=== PATIENT | female | born 1985 | race Caucasian/White ===

== ENCOUNTER 2020-12-30 06:23 | Inpatient (IN) ==
--- NOTE | 2020-12-24 15:21 | Anesthesiology Consultation ---
Date of Service December 24, 2020 Assessment & Plan (1) Encounter for pre-operative examination: Chart Review Chart Review: entry level sales consultant initiated Per nursing assessment December 24, 2020, patient denies any recent travel. No known Covid infection in the past 90 days. No known Covid positive contacts or Covid related symptoms. Preop Covid test 12/24/2020 = results pending. History Surgery Operation Date: 12/30/20 07:30 Proposed Procedures p Section in LD - J. Brayden Peters MD, FACOG Height/Weight Height: 5 ft 5 in Weight: 78.471 kg Allergies Allergy/AdvReac Type Severity Reaction Status Date / Time Penicillins Allergy Mild Unknown Verified 12/24/20 14:49 Medications Home Medications Medication Instructions Recorded Confirmed Last Taken calcium carbonate 1 dose PO QAM 04/13/20 12/24/20 Unknown magnesium carbonate 1 dose PO QAM 04/13/20 12/24/20 Unknown multivitamin 1 dose PO QAM 04/13/20 12/24/20 Unknown hydrocortisone 2.5 % topical cream 1 applic ID DAILY PRN #30 g 11/22/20 12/24/20 Unknown with perineal applicator ascorbic acid (vitamin C) [Vitamin 500 mg PO QAM 12/24/20 12/24/20 Unknown C] omega-3 fatty acids [[place] 3] 1,000 mg PO DAILY 12/24/20 12/24/20 Unknown Past Medical History Medical History History of anal fissures History of postoperative nausea Past Family History Family History Aunt Breast cancer Other No family history of adverse response to anesthesia Denies family history of Ovarian cancer Past Surgical History Surgical History History of colonoscopy History of rectal surgery 2015 for anal abscess, Social History Smoking Status: Never smoker Do You Dip or Chew Tobacco: No Hx Alcohol Use: No Hx Substance Use: No substance use type: does not use
--- NOTE | 2020-12-29 10:42 | History & Physical Report ---
Date of Service December 29, 2020 Assessment & Plan (1) Encounter for pre-operative examination: section. The patient was counseled to the nature of the procedure including alternatives such as labor. Risks were discussed including bleeding infection injury to bowel bladder ureter vessels and even baby. Deep Vein thrombosis, pulmonary embolus discussed. Breakdown of incision reviewed. Deep vein thrombosis pulmonary embolus hernia and failure of the incision to heal were discussed Patient verbalized understanding of this and was given ample time to ask questions We reviewed the option of labor the patient is fairly adamant that she would like to avoid any labor at this stage and she elects for a section we discussed this in detail patient had a mild penicillin rash as a baby I have recommended Anc for her History of Present Illness Primary Care Provider: NO PCP wishes elective c/s, primarily relating to prior anal surgery and wishes to avoid labor Allergies Allergy/AdvReac Type Severity Reaction Status Date / Time Penicillins Allergy Mild Unknown Verified 12/29/20 10:30 Home Medications Medication Instructions Recorded Confirmed Type calcium carbonate 1 dose PO QAM 04/13/20 12/29/20 History magnesium carbonate 1 dose PO QAM 04/13/20 12/29/20 History multivitamin 1 dose PO QAM 04/13/20 12/29/20 History hydrocortisone 2.5 % topical cream 1 applic OR DAILY PRN #30 g 11/22/20 12/29/20 Rx with perineal applicator ascorbic acid (vitamin C) [Vitamin 500 mg PO QAM 12/24/20 12/29/20 History C] omega-3 fatty acids [[place] 3] 1,000 mg PO DAILY 12/24/20 12/29/20 History Patient History Medical History History of anal fissures History of postoperative nausea Surgical History History of colonoscopy History of rectal surgery 2015 for anal abscess, Family History Aunt Breast cancer Other No family history of adverse response to anesthesia Denies family history of Ovarian cancer Social History Smoking Status: Never smoker Second Hand Exposure: No; Hx Alcohol Use: No Hx Substance Use: No Preferred Language: Citizen Of [place] Communication Ability: Effective Estate Attorney Required: No Beliefs That Will Affect Care: None marital status: marital status details: pablito (29) [phone] Current Living Situation: Spouse Current Living Situation Comment: lives with spouse, 1 dog. current occupational status: unemployed Feels Safe at Home: Yes Assistive Devices: None Review of Systems as per Subjective / HPI Physical Exam Constitutional: WD/WN, vitals as above well developed and well nourished Respiratory: normal respiratory effort, lungs clear to auscultation normal respiratory effort Cardiovascular: RRR, no murmur, no edema Gastrointestinal (Abdomen): normal bowel sounds, soft, nontender, no hepatosplenomegaly Coding Level of Care Code None Diagnoses Encounter for pre-operative examination Z01.818
[~2020-12-30 06:23] MED LIST: CITRIC ACID/SODIUM CITRATE 15 ML UDC PO SCH; LACTATED RINGER'S 1,000 ML IV SCH; ceFAZolin 2000MG 2,000 MG/15 ML SYR IV SCH
[2020-12-30 06:58] LABS: Basophils # (auto) 0.02 K/uL (0-0.2); Basophils % (auto) 0.2 %; Eosinophils # (auto) 0.16 K/uL (0-0.5); Eosinophils % (auto) 1.7 %; Hemoglobin 13.1 g/dL (12.0-16.0); Immature Granulocytes # (auto) 0.15 K/uL (0.00-0.02); Immature Granulocytes % (auto) 1.6 %; Lymphocytes # (auto) 1.78 K/uL (1.2-3.4); Lymphocytes % (auto) 18.5 %; Mean Corpuscular Hemoglobin 27.6 pg (25-34); Mean Corpuscular Hgb Conc 32.8 g/dL (32-36); Mean Corpuscular Volume 84.2 fL (80-100); Mean Platelet Volume 9.9 fL (7.4-10.4); Monocytes # (auto) 0.74 K/uL (0.11-0.59); Monocytes % (auto) 7.7 %; Neutrophils # (auto) 6.78 K/uL (1.4-6.5); Neutrophils % (auto) 70.3 %; Platelet Count 272 K/uL (130-400); RDW Coefficient of Variation 15.6 % (11.5-14.5); RDW Standard Deviation 47.6 fL (36.4-46.3); Red Blood Count 4.75 M/uL (4.2-5.4); White Blood Count 9.63 K/uL (4.8-10.8)
--- NOTE | 2020-12-30 07:17 | History & Physical Bridge Note ---
Date of Service December 30, 2020 History & Physical Bridge Note I have examined the patient, reviewed the History & Physical and in the interval since the performance of the History & Physical I have noted the following changes of clinical significance: no changes noted
[2020-12-30] MEDS ORDERED: MoRPHine SULFATE PF 1 MG/ML 10 ML AMP/VIAL ONE (07:33)
[2020-12-30] MEDS ORDERED: PROMETHAZINE HCL 12.5 MG in SODIUM CHLORIDE 0.9% 50 ML IV PRN (08:16)
[2020-12-30] MEDS ORDERED: NALOXONE HCL 1 MG in SODIUM CHLORIDE 0.9% 1000ML 1,000 ML IV PRN (08:16)
[2020-12-30] MEDS ORDERED: ONDANSETRON INJ 2 MG/ML 2 ML VIAL IV PRN (08:16)
[2020-12-30] MEDS ORDERED: ePHEDrine sulfate 50 MG/ML AMP IV PRN (08:16)
[2020-12-30] MEDS ORDERED: NALOXONE HCL 0.08 MG in SYRINGE 1.8 ML IV PRN (08:16)
[2020-12-30] MEDS ORDERED: MEPERIDINE HCL 25 MG/ML CARP/VIAL IV PRN (08:16)
[2020-12-30] MEDS ORDERED: KETOROLAC 30 MG/ML VIAL IV PRN (08:16)
[2020-12-30] MEDS ORDERED: diphenhydrAMINE 50 MG/ML VIAL IV PRN (08:16)
[2020-12-30] MEDS ORDERED: MoRPHine SULFATE PF 1 MG/ML 10 ML AMP/VIAL INT SPINAL ONE (08:16)
[2020-12-30] MEDS ORDERED: NALOXONE HCL 0.4 MG/1 ML VIAL/CARP IV PRN (08:16)
[2020-12-30] MEDS ORDERED: LACTATED RINGER'S 500 ML IV PRN (08:16)
[2020-12-30] MEDS ORDERED: NO NARCOTICS OR SEDATIVES SCH (08:30)
[2020-12-30] MEDS ORDERED: DC INTRASPINAL MORPHINE SCH (08:30)
[2020-12-30] MEDS ORDERED: SODIUM CHLORIDE 0.9% 1000ML 1,000 ML IV SCH (08:30)
[2020-12-30] MEDS ORDERED: PROPOFOL IV EMULSION 10 MG/ML 20 ML VIAL IV ONE (09:03)
[2020-12-30] MEDS ORDERED: MIDAZOLAM HCL 1 MG/ML 2ML VIAL ONE ×2 (09:04→09:07)
[2020-12-30] MEDS ORDERED: METOCLOPRAMIDE HCL INJ 5 MG/ML 2 ML VIAL ONE (09:26)
[2020-12-30] MEDS ORDERED: PHENYLEPHRINE 100MCG/ML 5ML SYR ONE (09:26)
[2020-12-30] MEDS ORDERED: ONDANSETRON INJ 2 MG/ML 2 ML VIAL ONE (09:26)
[2020-12-30] MEDS ORDERED: OXYTOCIN 10 UNITS/ML VIAL ONE (09:26)
--- NOTE | 2020-12-30 09:29 | Operative Report ---
PG Post Operative Report Pre & Post Diagnosis Operation Date: 12/30/20 08:15 Pre-Op Diagnosis: Prior anal surgery. Request for primary section. 39 complete weeks . Post-Op Diagnosis: Same as above I identified the patient and participated in the time-out.: Yes Procedure Operation Date: 12/30/20 08:15 Actual Procedures p Section in LD delivery of live female child at 0854 - Chucho Peters MD, FACOG Surgeon Chucho Peters MD, FACOG Tow Bar Driver Dr. Gomez Estimated Blood Loss 700 Findings Consistent with Post-Op Diagnosis Specimens Cord gases Description of Procedure Regional anesthetic was given by anesthesia patient had a Preciado catheter inserted by nursing patient was prepped and draped in supine position with a leftward tilt preoperative antibiotics were given timeout performed Pickups with teeth were used to test the skin site and it was found adequate for incision scalpel used to make a Pfannenstiel incision cutting down through subcutaneous fat through the fascia fascia was then dissected laterally with the curved Murray's fascia was released superiorly and inferiorly from the rectus muscles with the curved Murray scissors, rectus muscle split peritoneal cavity entered in a superior location. Opening enlarged to allow exposure bladder retractor placed Metzenbaums used to dissect away the bladder flap low segment transverse incision made on the uterus with scalpel entry was done bluntly with the derrick boat operator's finger hysterotomy incision extended with the derrick boat operator's finger in the usual fashion initially tried to flex the head and deliver however I could not get delivery of the head easily so vacuum was applied and then pulled on it was able to deliver the head, rest of the baby was delivered fully without difficulty without excessive force live vigorous cord clamped and cut cord gases obtained cord blood obtained placenta removed manually within ensured all placenta removed with a moist lap sponge uterus exteriorized IV Pitocin had been started by anesthesia and uterine tone improved. The uterus was closed in 2 layers first layer and 0 Monocryl running locked second layer 0 Monocryl nonlocked after generous irrigation and suction of the cul-de-sac and bladder flap regions hemostasis was excellent uterus was placed back in the peritoneal cavity and hemostasis was excellent rectus muscles were inspected and found to be dry fascia closed with 0 Vicryl subcutaneous fat closed with 3-0 Vicryl prior to this subcutaneous fat was irrigated skin closed with 4-0 subcuticular Monocryl incision Steri-Stripped urine was clear at the end of the procedure Uterine cavity and bilateral adnexa were normal I attest to the content of the Intraoperative Record and any orders documented therein. Any exceptions are noted below. Procedure Pre-op/Post-op diagnoses: Pre-Op/Post-Op Diagnoses Operation Date: 12/30/20 08:15 Pre-Op Diagnosis: Prior anal surgery. Request for primary section. 39 complete weeks . Post-Op Diagnosis: Same as above Procedure: Procedures Operation Date: 12/30/20 08:15 Actual Procedures Side Surgeon p Section in LD delivery of live female child at 0854 Chucho Peters MD, FACOG
[2020-12-30] MEDS ORDERED: HYDROCORTISONE ACETATE 25 MG SUPP PR PRN (09:40)
[2020-12-30] MEDS ORDERED: SUPERCREAM 0.870% 15 GM JAR EXT PRN (09:40)
[2020-12-30] MEDS ORDERED: SENNA 8.6 MG TAB PO PRN (09:40)
[2020-12-30] MEDS ORDERED: BENZOCAINE 20% AER SPR 82.5 GM CAN EXT PRN (09:40)
[2020-12-30] MEDS ORDERED: MAGNESIUM HYDROXIDE SUSP 30 ML UDC PO PRN (09:40)
[2020-12-30] MEDS ORDERED: DIPHTHERIA/TETANUS/PERTUSSIS 0.5 ML SYR/VIAL IM ONE (09:40)
[2020-12-30] MEDS ORDERED: LACTATED RINGER'S 1,000 ML IV SCH (09:45)
[2020-12-30] MEDS ORDERED: MEPERIDINE HCL 25 MG/ML CARP/VIAL ONE (09:46)
[2020-12-30] MEDS ORDERED: KETOROLAC 30 MG/ML VIAL ONE (09:47)
[2020-12-30 10:27] LABS: Base Excess Cord Arterial Bld -2.1 mEq/L (-9-1.8); CO2 Cord Arterial Blood 38 mmHg (39.1-73.5); HCO3 Cord Arterial Blood 22 mmol/L (19.7-28.5); Oxygen Sat Cord Arterial Blood 77.9 % (<60); PO2 Cord Arterial Blood 36 mmHg (4.1-31.7)
[2020-12-30 10:29] LABS: pH Cord Arterial Blood 7.39 (7.1-7.38)
[2020-12-30] MEDS: OXYTOCIN 20 UNITS in LACTATED RINGER'S 1,000 ML IV SCH ×2 (11:17→19:06)
[2020-12-30] MEDS: SIMETHICONE 80 MG CHEW PO SCH ×3 (13:50→21:03)
--- NOTE | 2020-12-30 20:50 | Anesthesiology Progress Note ---
Date of Service December 30, 2020 Anesthesia Post Procedure Vital Signs Vital Signs: Temp Pulse Pulse Resp BP BP Pulse Ox 12/30/20 20:00 18 96 12/30/20 19:30 36.5 C 85 18 114/73 95 12/30/20 18:27 18 97 12/30/20 17:40 18 96 12/30/20 16:05 18 97 12/30/20 15:45 18 99 12/30/20 14:30 18 97 12/30/20 13:30 36.6 C 94 H 16 118/73 97 12/30/20 12:50 90 99 12/30/20 12:48 90 117/62 12/30/20 12:45 85 99 12/30/20 12:40 91 H 100 12/30/20 12:35 75 100 12/30/20 12:30 97 H 99 12/30/20 12:25 89 100 12/30/20 12:20 86 99 12/30/20 12:18 90 117/62 12/30/20 12:15 86 100 12/30/20 12:10 83 100 12/30/20 12:05 76 100 12/30/20 12:00 82 100 12/30/20 11:57 36.8 C 18 12/30/20 11:55 84 100 12/30/20 11:50 82 100 12/30/20 11:47 73 116/63 12/30/20 11:45 84 100 12/30/20 11:40 108 H 98 12/30/20 11:38 73 115/62 12/30/20 11:35 84 99 12/30/20 11:30 91 H 99 12/30/20 11:28 93 H 121/67 12/30/20 11:25 97 H 99 12/30/20 11:20 99 H 99 12/30/20 11:17 89 118/68 12/30/20 11:15 86 98 12/30/20 11:10 87 98 12/30/20 11:07 86 18 118/61 12/30/20 11:05 79 97 12/30/20 11:00 92 H 99 12/30/20 10:58 81 123/60 12/30/20 10:55 98 H 98 12/30/20 10:50 73 97 12/30/20 10:48 89 125/65 12/30/20 10:47 18 12/30/20 10:45 96 H 98 12/30/20 10:40 96 H 98 12/30/20 10:38 99 H 126/68 12/30/20 10:37 36.8 C 18 12/30/20 10:35 95 H 98 12/30/20 10:30 98 H 98 12/30/20 10:28 96 H 123/61 12/30/20 10:27 18 12/30/20 10:25 99 H 97 12/30/20 10:20 93 H 97 12/30/20 10:18 92 H 128/65 12/30/20 10:17 18 12/30/20 10:15 89 97 12/30/20 10:14 92 H 94 12/30/20 10:10 79 97 12/30/20 10:09 83 91 12/30/20 10:08 91 H 128/63 12/30/20 10:07 18 12/30/20 10:05 84 99 12/30/20 10:00 89 99 12/30/20 09:58 70 130/64 12/30/20 09:55 95 H 100 12/30/20 09:50 102 H 100 12/30/20 09:48 106 H 127/82 12/30/20 09:45 97 H 100 12/30/20 09:40 110 H 99 12/30/20 09:37 36.6 C 111 H 18 142/74 H 12/30/20 09:35 111 H 97 12/30/20 07:15 36.8 C 18 12/30/20 06:44 75 129/79 Pain Intensity Anterior: Pain Intensity: 2 Transfer of Care Handoff Completed per policy Notes Mental Status: alert / awake / arousable Patient Amnestic to Procedure: Yes Nausea / Vomiting: adequately controlled Pain: adequately controlled Airway Patency, RR, SpO2: stable & adequate BP & HR: stable & adequate Hydration State: stable & adequate Neuraxial Anesthesia: was administered and sensory block is resolving Anesthetic Complications: no major complications apparent
[2020-12-30] MEDS: DOCUSATE SODIUM 100 MG CAP PO SCH (21:03)
[2020-12-31] MEDS ORDERED: diphenhydrAMINE Capsule 25 MG CAP PO PRN (02:16)
[2020-12-31] MEDS ORDERED: ePHEDrine sulfate 50 MG/ML AMP IV PRN (02:16)
[2020-12-31] MEDS ORDERED: diphenhydrAMINE 50 MG/ML VIAL IV PRN (02:16)
[2020-12-31] MEDS ORDERED: PROMETHAZINE HCL 25 MG in SODIUM CHLORIDE 0.9% 50 ML IV PRN (02:16)
[2020-12-31] MEDS ORDERED: ONDANSETRON INJ 2 MG/ML 2 ML VIAL IV PRN (02:16)
[2020-12-31] MEDS: IBUPROFEN 600 MG TAB PO PRN ×2 (02:23→14:20)
[2020-12-31 06:43] LABS: Basophils # (auto) 0.02 K/uL (0-0.2); Basophils % (auto) 0.1 %; Eosinophils # (auto) 0.09 K/uL (0-0.5); Eosinophils % (auto) 0.6 %; Hematocrit (blood only) 31.4 % (37-47); Hemoglobin 10.4 g/dL (12.0-16.0); Immature Granulocytes # (auto) 0.07 K/uL (0.00-0.02); Immature Granulocytes % (auto) 0.5 %; Lymphocytes # (auto) 1.32 K/uL (1.2-3.4); Lymphocytes % (auto) 9.3 %; Mean Corpuscular Hemoglobin 27.7 pg (25-34); Mean Corpuscular Hgb Conc 33.1 g/dL (32-36); Mean Corpuscular Volume 83.7 fL (80-100); Mean Platelet Volume 9.6 fL (7.4-10.4); Monocytes # (auto) 0.75 K/uL (0.11-0.59); Monocytes % (auto) 5.3 %; Neutrophils # (auto) 11.87 K/uL (1.4-6.5); Neutrophils % (auto) 84.2 %; Platelet Count 227 K/uL (130-400); RDW Coefficient of Variation 15.4 % (11.5-14.5); RDW Standard Deviation 46.7 fL (36.4-46.3); Red Blood Count 3.75 M/uL (4.2-5.4); White Blood Count 14.12 K/uL (4.8-10.8)
--- NOTE | 2020-12-31 07:14 | Obstetrical Progress Note ---
Date of Service <Wilian Suarez MD - Last Filed: 12/31/20 07:14> December 31, 2020 Assessment & Plan <Wilian Suarez MD - Last Filed: 12/31/20 07:14> (1) Supervision of elderly primigravida: A/P: Patient is a 35yo female on POD#1 s/p delivery at 39+3wga. * VSS * Doing well today overall; eating well, voiding well, ambulating well * Pain well-controlled with ibuprofen 600mg q4h * PNL: Rh pos, RI, GBS neg, COVID neg * Routine post- care: OOB, ambulation, diet progression as tolerated * After discharge, will have six-week follow-up with Dr. Peters Subjective <Wilian Suarez MD - Last Filed: 12/31/20 07:14> Patient is a 35yo female on POD#1 s/p delivery at 39+3wga. This morning, patient feels well overall. Reports mild, crampy abdominal pain well- managed on analgesics. Tolerating PO intake without nausea or vomiting. Patient has been able to ambulate without lightheadedness or dizziness. Lochia is gradually improving over time. Preciado catheter has been removed, and patient is voiding without difficulty.Patient is passing flatus; no BM since surgery. Patient is . Review of Systems Denies fever, chills, CP, SOB, cough, breast pain, dysuria, leg pain, leg swelling, headache, and changes in vision. Physical Exam <Wilian Suarez MD - Last Filed: 12/31/20 07:14> Gen: awake, alert, oriented, laying in bed Cardiac: regular rhythm, no murmur appreciated Resp: lungs CTABL, good respiratory effort, no increased WOB, no wheezes/rales/rhonchi Abd: normal gravid abdomen, soft, mildly tender, BS present, surgical incision clean, dry, and intact with steri-strips in place : uterine fundus firm, palpable 2-3 cm below umbilicus LE: no lower extremity edema bilaterally; no deep calf pain, Brandon's negative bilaterally Results & Data ([facility]) <Wilian Suarez MD - Last Filed: 12/31/20 07:14> Vital Signs (Past 12 Hours) Vital Signs Temp Pulse Resp BP Pulse Ox 12/31/20 03:15 37.0 C 69 18 98/61 L 97 12/31/20 02:00 18 94 12/31/20 01:00 16 95 12/31/20 00:00 18 94 12/30/20 23:15 37.0 C 88 18 111/71 97 12/30/20 22:00 18 95 12/30/20 21:05 18 96 12/30/20 20:00 18 96 12/30/20 19:30 36.5 C 85 18 114/73 95 <Chucho Peters MD, FACOG - Last Filed: 12/31/20 07:49> Co-Signing Physician Notes Resident Physician Supervision Note: I interviewed and examined the patient. Discussed with Dr. Gomez and agree with findings and plan as documented in the note. Any exceptions or clarifications are listed here: [None] Documented By: Chucho Peters MD, FACOG Resident Activity Tracking <Wilian Suarez MD - Last Filed: 12/31/20 07:14> Resident Involvement: Resident Care Provided Care Provided: OB Delivery
[2020-12-31] MEDS: PRENATAL VITAMIN 1 TAB PO SCH (07:57)
[2020-12-31] MEDS: SIMETHICONE 80 MG CHEW PO SCH ×4 (07:57→21:23)
[2020-12-31] MEDS: FERROUS SULFATE 325 MG TAB PO SCH (07:57)
[2020-12-31] MEDS: DOCUSATE SODIUM 100 MG CAP PO SCH ×2 (07:58→21:22)
[2020-12-31] MEDS: oxyCODONE/ACETAMINOPHEN 5mg/325mg TAB PO PRN ×2 (07:58→14:22)
[2021-01-01] MEDS: IBUPROFEN 600 MG TAB PO PRN ×4 (02:02→22:53)
--- NOTE | 2021-01-01 06:35 | Obstetrical Progress Note ---
Date of Service <Wilian Suarez MD - Last Filed: 01/01/21 06:35> January 01, 2021 Assessment & Plan <Wilian Suarez MD - Last Filed: 01/01/21 06:35> (1) Supervision of elderly primigravida: A/P: Margaux Guzman 35yo female on POD#2 s/p delivery at 39+3wga. * VSS * Doing well today overall; eating well, voiding well, ambulating well * Pain well-controlled with ibuprofen 600mg q4h * PNL: Rh pos, RI, GBS neg, COVID neg * Routine post- care: OOB, ambulation, diet progression as tolerated * After discharge, will have six-week follow-up with Dr. Peters Subjective <Wilian Suarez MD - Last Filed: 01/01/21 06:35> Margaux Guzman 35yo female on POD#2 s/p delivery at 39+3wga. Patient reports feeling "exhausted" but says she's doing well overall this morning. Reports mild, crampy abdominal pain well-managed on analgesics. Also endorses intermittent mild "gas pain". Tolerating PO intake without nausea or vomiting. Patient has been able to ambulate without lightheadedness or dizziness. Lochia is gradually improving over time. Preciado catheter has been removed, and patient is voiding without difficulty.Patient is passing flatus; no BM since surgery. is going well. Denies fever, chills, CP, SOB, cough, breast pain, dysuria, leg pain, headache, and changes in vision. Physical Exam <Wilian Suarez MD - Last Filed: 01/01/21 06:35> Gen: awake, alert, oriented, laying in bed Cardiac: regular rhythm, no murmur appreciated Resp: lungs CTABL, good respiratory effort, no increased WOB, no wheezes/rales/rhonchi Abd: normal gravid abdomen, soft, mildly tender, BS present, surgical incision clean, dry, and intact with steri-strips in place : uterine fundus firm, palpable 2-3 cm below umbilicus LE: minimal lower extremity edema bilaterally; no deep calf pain, Brandon's negative bilaterally Results & Data ([facility]) <Wilian Suarez MD - Last Filed: 01/01/21 06:35> Vital Signs (Past 12 Hours) Vital Signs Temp Pulse Resp BP Pulse Ox 12/31/20 23:30 36.8 C 95 H 17 126/80 98 <Susana Thorpe MD - Last Filed: 01/01/21 08:14> Co-Signing Physician Notes Resident Physician Supervision Note: I interviewed and examined the patient. Discussed with Dr. Suarez and agree with findings and plan as documented in the note. Any exceptions or clarifications are listed here: POD2 s/p elective pCS. Doing well, meeting pp milestones. VSS, exam benign and wnl. Plan d/c tomorrow Documented By: Susana Thorpe MD Resident Activity Tracking <Wilian Suarez MD - Last Filed: 01/01/21 06:35> Resident Involvement: Resident Care Provided Care Provided: OB Delivery
[2021-01-01] MEDS: SIMETHICONE 80 MG CHEW PO SCH ×4 (08:35→20:01)
[2021-01-01] MEDS: PRENATAL VITAMIN 1 TAB PO SCH (08:35)
[2021-01-01] MEDS: FERROUS SULFATE 325 MG TAB PO SCH (08:35)
[2021-01-01] MEDS: DOCUSATE SODIUM 100 MG CAP PO SCH ×2 (08:35→20:01)
[2021-01-01] MEDS ORDERED: bisacodyL 10 MG SUPP PR PRN (09:29)
[2021-01-01] MEDS ORDERED: Nursing to Pharmacy Communication SCH (15:15)
--- NOTE | 2021-01-02 07:49 | Obstetrical Progress Note ---
Date of Service January 02, 2021 Assessment & Plan (1) S/P section: Doing well. Plan d/c home later today. Instructions given. f/u in office in 6 weeks. Day #:: 3 Subjective Ambulation: ambulating normally Voiding: no voiding problems Passing Gas:: Yes Diet Tolerance:: regular diet Lochia:: Small Feeding Type:: breast feeding Pain controlled with oral pain meds. Physical Exam Constitutional WD/WN, vitals as above Respiratory normal respiratory effort, lungs clear to auscultation Cardiovascular RRR, no murmur, no edema Extremities: no calf tenderness and no edema Gastrointestinal (Abdomen) soft, nt, nd, ff/nt at u Results & Data ([facility]) Vital Signs (Past 12 Hours) Vital Signs Temp Pulse Resp BP Pulse Ox 01/01/21 22:50 36.8 C 91 H 16 119/74 98 01/01/21 20:00 36.8 C 89 16 118/75 96
[2021-01-02] MEDS: PRENATAL VITAMIN 1 TAB PO SCH (08:33)
[2021-01-02] MEDS: DOCUSATE SODIUM 100 MG CAP PO SCH (08:33)
[2021-01-02] MEDS: IBUPROFEN 600 MG TAB PO PRN ×2 (08:33→13:46)
[2021-01-02] MEDS: FERROUS SULFATE 325 MG TAB PO SCH (08:33)
[2021-01-02] MEDS: SIMETHICONE 80 MG CHEW PO SCH ×2 (08:33→13:46)
--- NOTE | 2021-01-04 09:46 | Discharge Summary ---
Date of Service January 04, 2021 Admission Exam (Per Admitting) Constitutional WD/WN, vitals as above well developed and well nourished Respiratory normal respiratory effort, lungs clear to auscultation normal respiratory effort Cardiovascular RRR, no murmur, no edema Gastrointestinal (Abdomen) normal bowel sounds, soft, nontender, no hepatosplenomegaly Discharge Data Procedures Performed Operation Date: 12/30/20 08:15 Actual Procedures p Section in delivery of live female child at [address] [place] [address] Brayden Peters MD, [facility] Course (1) S/P section: Doing well. Plan d/c home later today. Instructions given. f/u in of fice in 6 weeks. Coding Level of Care Code None Diagnoses S/P section Z98.891
== END 2021-01-02 15:33 | disposition home or self-care (01) | DRG 788 ==
LOC: 4S1 06:23 → EDSTATUS 07:30 → 4S2 13:53

== ENCOUNTER 2024-02-13 02:57 | Inpatient (IN) ==
[2024-02-13] MEDS ORDERED: MoRPHine SULFATE PF 1 MG/ML 10 ML AMP/VIAL ONE (04:22)
--- NOTE | 2024-02-13 04:22 | History & Physical Report ---
Date of Service February 13, 2024 Assessment & Plan (1) Gestational diabetes: (2) SROM (spontaneous rupture of membranes): (3) Polyhydramnios: Plan 38 yo at 38 3/7 wga presents w/ srom/labor, hx CS plans repeat VSS Fetus cat 1 CS - Discussed indications, risks, benefits, alternatives with risks including infection, bleeding, injury to adjacent structures (bowel, bladder, ureters, blood vessels, nerves, baby), possible need for blood transfusion and/or life saving hysterectomy, VTE. Consent reviewed in detail w/ pt and signed after all questions answered to her satisfaction. Plan for ancef and azithro, tolerated ancef last CS Admission and Anticipated Discharge Date Admission Date: February 13, 2024 History of Present Illness Chief Complaint: ROM, labor Primary Care Provider: NO PCP 38 yo at 38 3/7 wga presents w/ LOF. Had been ctx intermittently throughout the day but worsened overnight. Had started timing them and shortly after had srom at 2am PNI: CSx1, desires repeat A1GDM Polyhydramnios Past health and wellness advisor hx: G1 2020 pCS G2 2022 sab G3 current denies hx stis Allergies Allergy/AdvReac Type Severity Reaction Status Date / Time Penicillins Allergy Mild Rash Verified 02/11/24 15:01 Home Medications Medication Instructions Recorded Confirmed Type PNV no.[id number] 1 tab PO QAM 08/03/23 02/13/24 History [ Gummies(zinc chelate)] calcium 100 mg capsule 100 mg PO QAM 02/11/24 02/13/24 History cholecalciferol (vitamin D3) 100 1,000 unit PO DAILY 02/11/24 02/13/24 History mcg (4,000 unit) capsule coenzyme Q10 100 mg capsule 100 mg PO QAM 02/11/24 02/13/24 History (CoQ-10) docusate sodium 100 mg tablet 100 mg PO DAILY 02/11/24 02/13/24 History (Stool Softener) magnesium 250 mg tablet 250 mg PO QAM 02/11/24 02/13/24 History selenium 25 mcg tablet 25 mcg PO DAILY 02/11/24 02/13/24 History vitamin B complex 1 cap PO DAILY 02/11/24 02/13/24 History zinc 50 mg tablet 50 mg PO DAILY 02/11/24 02/11/24 History Patient History Medical History Hx of migraines Polyhydramnios Gestational diabetes checking glucose at home, average 80's when fasting, 90-100's with food Elderly multigravida History of anal fissures Surgical History History of postoperative nausea S/P section (12/2020) History of colonoscopy (2015) History of rectal surgery (2015) r/t anal abscess Family History Aunt Breast cancer Other No family history of adverse response to anesthesia Denies family history of Ovarian cancer Colorectal cancer Social History Smoking Status: Never smoker Second Hand Exposure: No; Do You Dip or Chew Tobacco: No; Hx Alcohol Use: No Hx Substance Use: No Preferred Language: [place]ian Communication Ability: Effective Computer Applications Developer Required: No Beliefs That Will Affect Care: None marital status: marital status details: Jignesh Guzman (31) [phone] Current Living Situation: Spouse and Family Current Living Situation Comment: lives at home with and 3 yr old daughter current occupational status: unemployed current occupation: homemaker Other Information That Helps Us Care for You: No Feels Safe at Home: Yes Safety Concerns: Feels Safe At This Time Assistive Devices: None Physical Exam Genitourinary: Manual OB Exam: + cervical dilation fingertip, + cervical effacement and + amniotic fluid (+nitrazine, pooling, ferning) OB Exam Monitor Tracing: + external FHT monitor used, + external uterine monitor used (q4-6) and + category I Results & Data Vital Signs (Past 12 Hours) Vital Signs Temp Pulse Resp BP 02/13/24 03:22 98.1 F 02/13/24 03:18 98.1 F 18 02/13/24 03:15 91 H 142/82 H Laboratory Results OB Labs: Blood Type O Positive 08/08/23 Antibody Screen NEGATIVE 08/08/23 Hemoglobin 10.8 g/dl (12.0-16.0) L 12/06/23 Hematocrit 32.1 % (37.0-47.0) L 12/06/23 Mean Corpuscular Volume 82.8 fL (80.0-100.0) 08/08/23 Platelet Count 367 K/uL (130-400) 08/08/23 Rubella IgG Antibody Immune (Immune) 08/08/23 Rapid Plasma Reagin Nonreactive (Nonreactive) 08/08/23 Hepatitis B Surface Antigen Neg (Neg) 06/04/20 Hepatitis B Surface Antigen. NON-REACTIVE (NON-REACTIVE) 08/08/23 Hepatitis C Antibody (EIA) NON-REACTIVE (NON-REACTIVE) 08/08/23 HIV (1&2) Ab and P24 Ag, 4th Gener Neg (Neg) 06/04/20 HIV (1&2) Ag and Ab Confirmation NON-REACTIVE (NON-REACTIVE) 08/08/23 Glucose 1 Hour 50 gm Load 160 mg/dl (70-130) H 12/06/23 OB Optional Labs: Chlamydia trachomatis RNA Not Detected (NotDetected) 08/08/23 Neisseria gonorrhoeae RNA Not Detected (NotDetected) 08/08/23 Labs Reviewed: cf/sma negative prior --mln Declines genetics--mln GBS neg Diagnostic Findings 02/06 EFW 45%, DVP 8, ant plac Coding Level of Care Code None Diagnoses Gestational diabetes O24.419 SROM (spontaneous rupture of membranes) Polyhydramnios O40.9XX0
[2024-02-13 04:26] LABS: Basophils # (auto) 0.04 K/uL (0.00-0.20); Basophils % (auto) 0.4 %; Eosinophils # (auto) 0.02 K/uL (0.00-0.50); Eosinophils % (auto) 0.2 %; Hematocrit (blood only) 37.6 % (37.0-47.0); Hemoglobin 12.8 g/dl (12.0-16.0); Immature Granulocytes # (auto) 0.08 K/uL (0.01-0.20); Immature Granulocytes % (auto) 0.7 %; Lymphocytes # (auto) 1.21 K/uL (1.20-3.40); Lymphocytes % (auto) 11.2 %; Mean Corpuscular Hemoglobin 28.3 pg (25.0-34.0); Mean Platelet Volume 10.5 fL (9.4-12.4); Monocytes # (auto) 0.54 K/uL (0.11-0.59); Neutrophils # (auto) 8.91 K/uL (1.40-6.50); Neutrophils % (auto) 82.5 %; Platelet Count 242 K/uL (130-400); RDW Coefficient of Variation 15.1 % (11.5-14.5); RDW Standard Deviation 45.8 fL (36.4-46.3); Red Blood Count 4.53 M/uL (4.20-5.40)
[2024-02-13] MEDS ORDERED: fentaNYL citrate PF 100 MCG/2 ML VIAL ONE (04:27)
--- NOTE | 2024-02-13 04:32 | Anesthesiology Consultation ---
Date of Service February 13, 2024 Assessment & Plan (1) Encounter for pre-operative examination: Chart Review Chart Review: Acceptable Risk for Surgery History Surgery Operation Date: 02/13/24 03:50 Proposed Procedures p Section in LD - Susana Thorpe MD Height/Weight Height: 5 ft 4 in Weight: 81.647 kg Allergies Allergy/AdvReac Type Severity Reaction Status Date / Time Penicillins Allergy Mild Rash Verified 02/11/24 15:01 Medications Home Medications Medication Instructions Recorded Confirmed Last Taken PNV [id number] 1 tab PO QAM 08/03/23 02/13/24 02/12/24 [ Gummies(zinc chelate)] calcium 100 mg capsule 100 mg PO QAM 02/11/24 02/13/24 02/12/24 cholecalciferol (vitamin D3) 100 1,000 unit PO DAILY 02/11/24 02/13/24 02/12/24 mcg (4,000 unit) capsule coenzyme Q10 100 mg capsule 100 mg PO QAM 02/11/24 02/13/24 02/11/24 (CoQ-10) docusate sodium 100 mg tablet 100 mg PO DAILY 02/11/24 02/13/24 02/12/24 (Stool Softener) magnesium 250 mg tablet 250 mg PO QAM 02/11/24 02/13/24 02/12/24 selenium 25 mcg tablet 25 mcg PO DAILY 02/11/24 02/13/24 02/11/24 vitamin B complex 1 cap PO DAILY 02/11/24 02/13/24 02/12/24 zinc 50 mg tablet 50 mg PO DAILY 02/11/24 02/11/24 Unknown Past Medical History Medical History Hx of migraines Polyhydramnios Gestational diabetes checking glucose at home, average 80's when fasting, 90-100's with food Elderly multigravida History of anal fissures Past Family History Family History Aunt Breast cancer Other No family history of adverse response to anesthesia Denies family history of Ovarian cancer Colorectal cancer Past Surgical History Surgical History History of postoperative nausea S/P section (12/2020) History of colonoscopy (2015) History of rectal surgery (2015) r/t anal abscess Social History Smoking Status: Never smoker Do You Dip or Chew Tobacco: No Hx Alcohol Use: No Hx Substance Use: No substance use type: does not use Physical Exam Vital Signs Last Vital Signs Temp 36.7 C 02/13/24 03:22 Pulse 91 H 02/13/24 03:15 Resp 18 02/13/24 03:18 BP 142/82 H 02/13/24 03:15 Testing Laboratory Results Laboratory Tests 02/13/24 04:16 Hgb 12.8 Plt Count 242
[2024-02-13] MEDS: ceFAZolin 2000MG 2,000 MG/15 ML SYR IV SCH (04:38)
[2024-02-13] MEDS: CITRIC ACID/SODIUM CITRATE 15 ML UDC PO SCH (04:38)
[2024-02-13] MEDS ORDERED: ONDANSETRON INJ 2 MG/ML 2 ML VIAL IV PRN ×2 (04:40→23:35)
[2024-02-13] MEDS ORDERED: PROMETHAZINE HCL 6.25 MG in SODIUM CHLORIDE 0.9% 50 ML IV PRN (04:40)
[2024-02-13] MEDS ORDERED: ePHEDrine sulfate 50 MG/ML AMP IV PRN (04:40)
[2024-02-13] MEDS ORDERED: LACTATED RINGER'S 500 ML IV PRN (04:40)
[2024-02-13] MEDS ORDERED: NALBUPHINE HCL 5 MG in SYRINGE 0 ML IV PRN (04:40)
[2024-02-13] MEDS ORDERED: diphenhydrAMINE 50 MG/ML VIAL IV PRN ×2 (04:40→23:35)
[2024-02-13] MEDS ORDERED: NALOXONE HCL 1 MG in SODIUM CHLORIDE 0.9% 1,000 ML IV PRN (04:40)
[2024-02-13] MEDS ORDERED: MoRPHine SULFATE 2 MG/ML CARP IV PRN (04:40)
[2024-02-13] MEDS ORDERED: NALOXONE HCL 0.4 MG/1 ML VIAL/CARP IV PRN (04:40)
[2024-02-13] MEDS ORDERED: NALOXONE HCL 0.08 MG in SYRINGE 1.8 ML IV PRN (04:40)
[2024-02-13 04:41] LABS: Albumin Globulin Ratio 1.1 (0.9-2); Albumin Level 3.5 gm/dl (3.4-5.0); BUN Creatinine Ratio 19.7 (10-20); Bilirubin,Total 0.2 mg/dl (0.2-1.0); Calcium 9.4 mg/dl (8.6-10.3); Creatinine Clr Calc Pharmacy 129.3 ml/min; Est GFR (African American) 133.3 ml/min; Globulin 3.2 gm/dl (2.5-4.0); Potassium 3.8 mmol/L (3.5-5.1); Total Protein 6.7 gm/dl (6.0-8.3)
[2024-02-13] MEDS: AZITHROMYCIN 500 MG in DEXTROSE 5% 250 ML IV SCH (04:41)
[2024-02-13] MEDS: LACTATED RINGER'S 1,000 ML IV SCH ×2 (04:41→17:34)
[2024-02-13] MEDS ORDERED: NO NARCOTICS OR SEDATIVES SCH (04:45)
[2024-02-13] MEDS ORDERED: DC INTRASPINAL MORPHINE SCH (04:45)
[2024-02-13] MEDS ORDERED: OXYTOCIN 10 UNITS/ML VIAL ONE ×3 (04:48→05:58)
[2024-02-13] MEDS ORDERED: METOCLOPRAMIDE HCL INJ 5 MG/ML 2 ML VIAL ONE (04:48)
[2024-02-13] MEDS ORDERED: ONDANSETRON INJ 2 MG/ML 2 ML VIAL ONE (04:48)
[2024-02-13] MEDS ORDERED: PHENYLEPHRINE 100MCG/ML 10ML SYR IV ONE (05:11)
[2024-02-13] MEDS ORDERED: MEPERIDINE HCL 25 MG/ML CARP/VIAL ONE (05:40)
--- NOTE | 2024-02-13 06:22 | Operative Report ---
Post Operative Report Pre & Post Diagnosis Operation Date: 02/13/24 03:50 Pre-Op Diagnosis: Repeat Section SROM GDM Polyhydramnios Post-Op Diagnosis: Same I identified the patient and participated in the time-out.: Yes Procedure Operation Date: 02/13/24 03:50 Actual Procedures p Repeat Low Transverse Section in for [facility] at 0525(Bilateral) - Susana Thorpe MD Surgeon Susana Thorpe MD Canceling And Cutting Control Clerk REY Ramachandran Quantitative Blood Loss (QBL) 719 Findings Consistent with Post-Op Diagnosis Viable female with APGARs 8 and 9. Moderate rectus adhesions. Unable to exteriorize uterus due to enlarged size despite adequate incision. so unable to visualize tubes and ovaries Fluids 3L crystalloid, UOP 350cc clear urine by layton catheter Specimens Cord blood, placenta Drains Layton draining clear urine Anesthesia Type Spinal Complications none Disposition Accompanied Patient To Recovery: Yes Disposition: L&D Indications 38 yo at 38 3/7 wga presented with srom and in labor. She desires repeat CS Description of Procedure The patient was taken to the operating room after consents were ensured. The patient was properly identified. Spinal anesthesia was obtained without difficulty. The patient was placed in a dorsal supine position with left lateral tilt, then prepped and draped in normal sterile fashion. Surgical time out was performed. Antibiotics were given for prophylaxis. Anesthesia was tested to ensure adequate surgical levels. Pfannenstiel skin incision was performed and carried down to the underlying fascia with a knife. The fascia was then nicked in the midline and extended laterally with pickups and Murray scissors. Superior portion of the fascia was grasped with Kochers x2 and elevated off the underlying rectus muscles using blunt dissection. Inferior portion of the fascia was then grasped with Dougie clamps x2 and also elevated off the underlying muscles with blunt dissection. Midline was identified. The peritoneum was then entered and extended to provide adequate room for delivery of baby. A hand was inserted into the abdomen, uterus was noted to be clear of adhesions. Bladder blade was inserted, bladder flap was created in the usual fashion. A low transverse uterine incision was made in the uterus and extended bluntly in a superior to inferior fashion. Clear fluid noted at the time of entry. head was grasped and elevated to the hysterotomy in an atraumatic fashion however was floating and so unable to deliver with fundal pressure. Kiwi vacuum was applied to the flexion point and increased to the green zone. head delivered with one pull. The baby delivered in STEWART position, no nuchal cord. Remainder of the body delivered without incident. Nose and mouth were bulb suctioned on the surgical field. The cord was double clamped and cut, baby was handed off to awaiting pediatrics staff. Cord segment and blood were obtained. Placenta was then expressed from the uterus. The uterus was unable to be exteriorized despite multiple attempts despite adequate incision and no obvious adhesions so decision was made to repair hysterotomy in situ. Several passes were made inside the uterus to remove the remaining membranes. Attention was then turned to the hysterotomy, which was then closed with a running locked suture of 0 Vicryl on a CTX needle. An imbricating layer was then performed using 0-Monocryl. There was noted to be good hemostasis. The right and left pericolic gutters were cleaned of all clot and debris. The hysterotomy was again noted to be hemostatic. Space of Retzius was noted to be hemostatic. Keagan was applied to the hysterotomy. The fascia was then closed with a running suture of 0 Vicryl on a CT1 needle. Subcutaneous tissue was copiously irrigated and noted to be hemostatic. Subcutaneous tissue was re-approximated using 2-0 plain gut. The skin was then closed with a running suture of 3-0 Monocryl in a subcuticular fashion. At termination of the procedure, fundal pressure was applied and a moderate amount of lochia was expressed. Pressure dressing was applied to the patient. She tolerated the procedure well. All sponge, needle, instrument counts were correct x 2. I attest to the content of the Intraoperative Record and any orders documented therein. Any exceptions are noted below. OB Procedure Charges 92679
[2024-02-13] MEDS ORDERED: BENZOCAINE 20% SPRY 85 APPLN/85 GM CAN EXT PRN (06:31)
[2024-02-13] MEDS ORDERED: HYDROCORTISONE ACETATE 25 MG SUPP PR PRN (06:31)
[2024-02-13] MEDS ORDERED: MAGNESIUM HYDROXIDE SUSP 30 ML UDC PO PRN (06:31)
[2024-02-13] MEDS ORDERED: SENNA 8.6 MG TAB PO PRN (06:31)
--- NOTE | 2024-02-13 06:48 | Anesthesiology Progress Note ---
Date of Service February 13, 2024 Anesthesia Post Procedure Vital Signs Vital Signs: Temp Pulse Pulse Resp BP Pulse Ox 02/13/24 06:45 90 97 02/13/24 06:42 86 116/62 02/13/24 06:40 18 02/13/24 06:40 95 H 98 02/13/24 06:35 95 H 97 02/13/24 06:32 106 H 128/72 02/13/24 06:30 18 02/13/24 06:30 99 H 100 02/13/24 06:25 99 H 98 02/13/24 06:20 36.5 C 95 H 18 02/13/24 06:20 108 H 99 02/13/24 06:17 96 H 128/72 02/13/24 04:46 18 02/13/24 04:46 18 02/13/24 04:30 18 02/13/24 04:30 18 02/13/24 04:00 18 02/13/24 04:00 18 02/13/24 03:30 18 02/13/24 03:30 02/13/24 03:22 36.7 C 02/13/24 03:18 36.7 C 02/13/24 03:15 91 H 142/82 H Transfer of Care Handoff Completed per policy Notes Mental Status: alert / awake / arousable and participated in evaluation Patient Amnestic to Procedure: No Nausea / Vomiting: adequately controlled Pain: adequately controlled Airway Patency, RR, SpO2: stable & adequate BP & HR: stable & adequate Hydration State: stable & adequate Neuraxial Anesthesia: was administered and sensory block is resolving Anesthetic Complications: no major complications apparent and Pt Satisfied with anesthetic care
[2024-02-13] MEDS: KETOROLAC 30 MG/ML VIAL IV PRN (07:08)
[2024-02-13] MEDS: OXYTOCIN 20 UNITS/LR 1,002 ML IV SCH (08:37)
[2024-02-13] MEDS: PRENATAL VITAMIN 1 TAB PO SCH (12:44)
[2024-02-13] MEDS: SIMETHICONE 80 MG CHEW PO SCH (12:44)
[2024-02-13] MEDS: FERROUS SULFATE 325 MG TAB PO SCH (12:44)
[2024-02-13] MEDS: DOCUSATE SODIUM 100 MG CAP PO SCH (12:44)
[2024-02-13] MEDS ORDERED: diphenhydrAMINE Capsule 25 MG CAP PO PRN (23:35)
[2024-02-13] MEDS ORDERED: KETOROLAC 30 MG/ML VIAL IV PRN (23:35)
[2024-02-13] MEDS ORDERED: PROMETHAZINE HCL 25 MG in SODIUM CHLORIDE 0.9% 50 ML IV PRN (23:35)
[2024-02-14] MEDS: IBUPROFEN 600 MG TAB PO PRN (00:29)
--- NOTE | 2024-02-14 06:06 | Obstetrical Progress Note ---
Date of Service February 14, 2024 Assessment & Plan (1) Encounter for assessment: Plan 38 y/o POD#1: Eating well, voiding well, ambulating well Vitals reviewed, overnight vitals significant for mild tachycardia, HR max 109 Pain well controlled with Motrin Routine post op care - OOB, ambulation, diet progression as tolerated Will have 6 week follow up with Dr. Thorpe Subjective Ambulation: ambulating normally Voiding: no voiding problems Passing Gas:: Yes Diet Tolerance:: regular diet Lochia:: Small Feeding Type:: bottle feeding pain well controlled with Motrin Review of Systems -Denies fever or chills -Denies dyspnea, chest pain, or palpitations -Denies dysuria -Denies headache or changes in vision Physical Exam General: Alert and oriented. No acute distress Cardiac: Regular rate and rhythm, no murmurs appreciated Respiratory: Lungs clear to auscultation bilaterally, No increased work of breathing Abdominal: Soft, non-tender, non-distended. Bowel sounds present. Uterus: Uterine fundus firm, palpable below umbilicus. Incision site clean, dry, intact Extremities: No lower extremity edema, calves non-tender bilaterally Results & Data Vital Signs (Past 12 Hours) Vital Signs Temp Pulse Resp BP Pulse Ox O2 Del Method 02/14/24 03:30 36.7 C 102 H 18 118/76 98 Room Air 02/14/24 00:15 37.6 C H 109 H 18 132/75 98 Room Air 02/13/24 23:45 16 97 02/13/24 23:00 16 97 02/13/24 21:56 18 98 02/13/24 21:00 18 96 02/13/24 20:00 18 97 02/13/24 19:45 Room Air 02/13/24 19:02 18 98 02/13/24 19:02 37.5 C 99 H 18 112/72 98 Room Air 02/13/24 18:30 16 98 Resident Activity Tracking Resident Involvement: Resident Care Provided Care Provided: OB Delivery
[2024-02-14 06:40] LABS: Basophils # (auto) 0.03 K/uL (0.00-0.20); Basophils % (auto) 0.2 %; Eosinophils # (auto) 0.05 K/uL (0.00-0.50); Eosinophils % (auto) 0.3 %; Hemoglobin 11.2 g/dl (12.0-16.0); Immature Granulocytes # (auto) 0.09 K/uL (0.01-0.20); Immature Granulocytes % (auto) 0.6 %; Lymphocytes # (auto) 1.07 K/uL (1.20-3.40); Lymphocytes % (auto) 7.5 %; Mean Corpuscular Hgb Conc 32.9 g/dL (32.0-36.0); Mean Platelet Volume 9.9 fL (9.4-12.4); Monocytes # (auto) 0.73 K/uL (0.11-0.59); Monocytes % (auto) 5.1 %; Neutrophils # (auto) 12.39 K/uL (1.40-6.50); Neutrophils % (auto) 86.3 %; Platelet Count 223 K/uL (130-400); RDW Coefficient of Variation 15.3 % (11.5-14.5); RDW Standard Deviation 47.1 fL (36.4-46.3); White Blood Count 14.36 K/ul (4.8-10.8)
[2024-02-14] MEDS: oxyCODONE/ACETAMINOPHEN 5mg/325mg TAB PO PRN (08:29)
[2024-02-14] MEDS: bisacodyL 5 MG TABEC PO SCH (20:00)
[2024-02-15] MEDS: DIPHTHER/TETAN/PERTUS Vaccine (Tdap, Adol/Adult) 0.5mL IM ONE (01:25)
[2024-02-15] MEDS: SODIUM CHLORIDE 0.9% 1,000 ML IV SCH (01:26)
[2024-02-15] MEDS: MoRPHine SULFATE PF 1 MG/ML 10 ML AMP/VIAL INT SPINAL ONE (01:26)
--- NOTE | 2024-02-15 05:59 | Obstetrical Progress Note ---
Date of Service <Brodie Rodas DO - Last Filed: 02/15/24 05:59> February 15, 2024 Assessment & Plan <Brodie Rodas DO - Last Filed: 02/15/24 05:59> (1) Encounter for assessment: visit type: exam and care immediately after delivery Qualified Code(s): Z39.0 - Encounter for care and examination of mother immediately after delivery Plan 38 y/o POD#2: Eating well, voiding well, ambulating well Vitals reviewed, WNL Pain well controlled with Percocet + Motrin Routine post op care - OOB, ambulation, diet progression as tolerated Will have 6 week follow up with Dr. Thorpe <Alena Brasher MD, FACOG - Last Filed: 02/15/24 07:33> (1) Encounter for assessment: Subjective <Brodie Rodas - Last Filed: 02/15/24 05:59> Ambulation: ambulating normally Voiding: no voiding problems Passing Gas:: Yes Diet Tolerance:: regular diet Lochia:: Moderate Feeding Type:: bottle feeding pain slightly worse today but adequately controlled with Percocet + Motrin Review of Systems -Denies fever or chills -Denies dyspnea, chest pain, or palpitations -Denies dysuria -Denies headache or changes in vision Physical Exam <Brodie Rodas DO - Last Filed: 02/15/24 05:59> General: Alert and oriented. No acute distress Cardiac: Regular rate and rhythm, no murmurs appreciated Respiratory: Lungs clear to auscultation bilaterally, No increased work of br eathing Abdominal: Soft, non-tender, non-distended. Bowel sounds present. Uterus: Uterine fundus firm, palpable below umbilicus. Incision site clean, dry, intact Extremities: No lower extremity edema, calves non-tender bilaterally Results & Data <Brodie Rodas - Last Filed: 02/15/24 05:59> Vital Signs (Past 12 Hours) Vital Signs Temp Pulse Resp BP Pulse Ox O2 Del Method 02/15/24 02:30 36.5 C 87 18 121/82 97 Room Air 02/14/24 19:50 36.8 C 102 H 18 140/80 98 Room Air Supervising Physician <Alena Brasher MD, FACOG - Last Filed: 02/15/24 07:33> Co-Signing Physician Notes Resident Physician Supervision Note: I interviewed and examined the patient. Discussed with Dr. Rodas and agree with findings and plan as documented in the note. Any exceptions or clarifications are listed here: [None] Documented By: Alena Brasher MD, FACOG Resident Activity Tracking <Brodie Rodas DO - Last Filed: 02/15/24 05:59> Resident Involvement: Resident Care Provided Care Provided: OB Delivery
[2024-02-15] MEDS ORDERED: bisacodyL 10 MG SUPP PR PRN (06:14)
[2024-02-15 06:22] LABS: Hematocrit (blood only) 32.9 % (37.0-47.0); Hemoglobin 10.9 g/dl (12.0-16.0)
== END 2024-02-15 16:20 | disposition home or self-care (01) | DRG 788 ==
LOC: OPB 02:57 → 4S1 03:07 → 4E1 08:45